=== PATIENT | female | born 1980 | race Caucasian/White ===

== ENCOUNTER 2017-02-08 11:29 | Emergency (ER) | payer BC ==
[2017-02-08 11:43] VITALS: BP 111/53
[2017-02-08] MEDS ORDERED: Sodium Chloride 0.9% 1,000 ML IV ONE ×2 (11:59→13:07)
[2017-02-08] MEDS ORDERED: Sodium Chloride 0.9% 10 ML Syringe FLUSH PRN ×2 (11:59→12:53)
[2017-02-08] MEDS ORDERED: Ketorolac 30 MG/ML SDV IVPUSH ONE (11:59)
[2017-02-08] MEDS ORDERED: HYDROmorphone 0.5 MG/0.5 ML Syringe IVPUSH ONE ×2 (11:59→15:55)
[2017-02-08] MEDS ORDERED: Ondansetron 4 MG/2 ML SDV IVPUSH ONE ×2 (11:59→14:08)
[2017-02-08] MEDS ORDERED: Iopamidol 612 MG/ML 150 ML Bottle IVPUSH ONE (12:53)
[2017-02-08] MEDS ORDERED: Diatrizoate Meglumine/Diatrizoate Sodium 37% 120 ML Bottle PO ONE (12:54)
[2017-02-08] MEDS ORDERED: HYDROmorphone 1 MG/ML Syringe IVPUSH ONE ×2 (13:14→14:29)
--- NOTE | 2017-02-08 14:17 | CT ---
CT abdomen and pelvis Technique: Multiple axial sections were obtained from above the dome of the diaphragm inferiorly through the pubic symphysis. Intravenous and oral contrast was utilized. Delayed images were also obtained through the abdomen and pelvis. Comparison: No previous study. Findings: Visualized lung bases are clear. Ill-defined low-density lesions are seen throughout the left and right lobes of the liver. These do not have Hounsfield unit measurements of cysts and unfortunately are suspicious for possible metastatic disease. Largest lesion measures about 3.0 x 2.4 cm in size. Calcified gallstones are seen within the gallbladder. Spleen appears within normal limits. Adrenal glands show no nodule. Kidneys show symmetric contrast enhancement without hydronephrosis or mass. Pancreas is within normal limits. Aorta shows no aneurysmal dilatation. No retroperitoneal adenopathy or mesenteric abnormalities are seen. No pelvic mass or adenopathy is identified. Appendix is seen and appears within normal limits. No free fluid or inflammatory change is identified. Bone window settings were reviewed which show scattered sclerotic areas within the ribs, spine and within the pelvis and hips likely representing osteoblastic metastasis. Impression: 1. Multiple low-density lesions within the right and left lobes of liver which do not have Hounsfield unit measurements of cysts and are highly suspicious for metastatic disease. 2. Areas of sclerosis within the ribs, spine, pelvis and hips compatible with osteoblastic metastasis. 3. Calcified gallstones are present. 4. No additional abnormality is identified on CT study of the abdomen and pelvis. Diagnostic code #9
--- NOTE | 2017-02-08 14:19 | EDM.PDOC ---
ED HPI GENERAL MEDICAL PROBLEM - General Chief Complaint: Abdominal Pain Stated Complaint: Abdominal pain Time Seen by Provider: 02/08/17 11:45 Source of Information: Reports: Patient, RN Notes Reviewed History Limitations: Reports: No Limitations - History of Present Illness INITIAL COMMENTS - FREE TEXT/NARRATIVE: 36 year old female presents to the ED with abdominal pain, nausea, vomiting, and diarrhea. Symptoms started this morning. She has stage 4 breast cancer with mets to the liver and bones. She had chemotherapy yesterday. She moved back to [place] from [place] about 2 weeks ago and just established care with Dr. Rosales. She does not have a PCP here in [place] yet. She denies fever, chills, sweats, chest pain, or shortness of breath. No urinary symptoms. She had an allergic reaction to her previous chemotherapy medication. This is her second dose of her current chemo treatment. She is concerned that she's having another allergic reaction to this medication. 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 She is scheduled to fly back and see her pain specialist next week. She takes 45mg of Morphine ER BID with 15mg IR every 4 hours as needed for pain. She missed her morning ER morphine due to nausea. She tried taking Phenergan with no relief in nausea at home. Abdominal Pain Score (Numeric/FACES): 9 - Related Data Allergies Allergy/AdvReac Type Severity Reaction Status Date / Time zeloda Allergy Nausea and Uncoded 02/08/17 11:44 Vomiting Home Meds: Home Meds Gabapentin [Gralise] 300 mg PO TID 02/08/17 [History] Meloxicam 15 mg PO DAILY 02/08/17 [History] Morphine Sulfate 15 mg PO Q4H PRN #10 tablet 02/08/17 [Rx] Morphine Sulfate [Morphine Sulfate ER] 45 mg PO BID 02/08/17 [History] Past Medical History Oncologic (Cancer) History: Reports: Breast, Metastatic - Past Surgical History Female Surgical History: Reports: Hysterectomy, Mastectomy Social & Family History - Tobacco Use Smoking Status *Q: Current Every Day Smoker Years of Tobacco use: 13 Packs/Tins Daily: 0.7 - Caffeine Use Caffeine Use: Reports: Coffee - Recreational Drug Use Recreational Drug Use: No ED ROS GENERAL - Review of Systems Review Of Systems: See Below Constitutional: Reports: No Symptoms. Denies: Fever, Chills Respiratory: Reports: No Symptoms. Denies: Shortness of Breath Cardiovascular: Reports: No Symptoms. Denies: Chest Pain GI/Abdominal: Reports: Abdominal Pain, Diarrhea, Decreased Appetite, Nausea, Vomiting : Reports: No Symptoms. Denies: Dysuria, Flank Pain, Frequency ED EXAM, GI/ABD - Physical Exam Exam: See Below Exam Limited By: No Limitations General Appearance: Alert, WD/WN, Anxious, Moderate Distress Respiratory/Chest: No Respiratory Distress, Lungs Clear, Normal Breath Sounds, Chest Non-Tender Cardiovascular: Normal Peripheral Pulses, Regular Rate, Rhythm, No Murmur GI/Abdominal Exam: Normal Bowel Sounds, Soft, No Organomegaly, No Distention, Tender (epigastric region and umbilical region ) Neurological: Alert, Oriented, Normal Cognition Skin Exam: Warm, Dry, Intact Course - Vital Signs Last Recorded V/S: Last Vital Signs Temp 97.4 F 02/08/17 11:41 Pulse 59 L 02/08/17 11:41 Resp 16 02/08/17 11:41 BP 111/53 L 02/08/17 11:41 Pulse Ox 96 02/08/17 11:41 - Orders/Labs/Meds Orders: Active Orders 24 hr Category Date Time Status Peripheral IV Care [RC] . DIRECTED Care 02/08/17 12:00 Active Sodium Chloride 0.9% [Saline Flush] Med 02/08/17 11:59 Active 10 ml FLUSH ASDIRECTED PRN Sodium Chloride 0.9% [Saline Flush] Med 02/08/17 12:53 Active 10 ml FLUSH ONETIME PRN Peripheral IV Insertion Adult [OM.PC] Stat Oth 02/08/17 11:59 Ordered Medication Orders Sodium Chloride (Saline Flush) 10 ml FLUSH ASDIRECTED PRN PRN Reason: Keep Vein Open Last Admin: 02/08/17 12:12 Dose: 10 ml Sodium Chloride (Saline Flush) 10 ml FLUSH ONETIME PRN PRN Reason: IV FLUSH Last Admin: 02/08/17 13:35 Dose: 10 ml Labs: Laboratory Tests 02/08/17 02/08/17 Range/Units 12:00 12:00 WBC 5.43 (3.98-10.04) K/mm3 RBC 4.27 (3.98-5.22) M/mm3 Hgb 12.5 (11.2-15.7) gm/L Hct 37.5 (34.1-44.9) % MCV 87.8 (79.4-94.8) fl MCH 29.3 (25.6-32.2) pg MCHC 33.3 (32.2-35.5) g/dl RDW Std Deviation 48.6 H (36.4-46.3) fL Plt Count 435 H (182-369) K/mm3 MPV 8.8 L (9.4-12.3) fl Neut % (Auto) 81.4 H (34.0-71.1) % Lymph % (Auto) 15.1 L (19.3-51.7) % Starke % (Auto) 2.2 L (4.7-12.5) % Eos % (Auto) 0.2 L (0.7-5.8) Baso % (Auto) 0.4 (0.1-1.2) % Neut # (Auto) 4.42 (1.56-6.13) K/mm3 Lymph # (Auto) 0.82 L (1.18-3.74) K/mm3 Starke # (Auto) 0.12 L (0.24-0.36) K/mm3 Eos # (Auto) 0.01 L (0.04-0.36) K/mm3 Baso # (Auto) 0.02 (0.01-0.08) K/mm3 Sodium 143 (136-145) mEq/L Potassium 3.7 (3.5-5.1) mEq/L Chloride 106 (98-107) mEq/L Carbon Dioxide 24 (21-32) mEq/L Anion Gap 16.7 H (5-15) BUN 14 (7-18) mg/dL Creatinine 0.8 (0.55-1.02) mg/dL Est Cr Clr Drug Dosing 78.37 mL/min Estimated GFR (MDRD) > 60 (>60) mL/min BUN/Creatinine Ratio 17.5 (14-18) Glucose 114 H (74-106) mg/dL Calcium 10.6 H (8.5-10.1) mg/dL Total Bilirubin 0.5 (0.2-1.0) mg/dL AST 32 (15-37) U/L ALT 29 (14-59) U/L Alkaline Phosphatase 95 (46-116) U/L Total Protein 8.8 H (6.4-8.2) g/dl Albumin 4.3 (3.4-5.0) g/dl Globulin 4.5 gm/dL Albumin/Globulin Ratio 1.0 (1-2) Lipase 92 (73-393) U/L Meds: Medications Generic Name Dose Route Start Last Admin Trade Name Erik PRN Reason Stop Dose Admin Sodium Chloride 10 ml 02/08/17 11:59 02/08/17 12:12 Saline Flush FLUSH 10 ml ASDIRECTED PRN Administration Keep Vein Open Sodium Chloride 10 ml 02/08/17 12:53 02/08/17 13:35 Saline Flush FLUSH 10 ml ONETIME PRN Administration IV FLUSH Discontinued Medications Generic Name Dose Route Start Last Admin Trade Name Erik PRN Reason Stop Dose Admin Diatrizoate Meglum/Diatrizoate Sod 120 ml 02/08/17 12:54 02/08/17 13:35 Gastrografin 37% PO 02/08/17 12:55 90 ml ONETIME ONE Administration Hydromorphone HCl 0.5 mg 02/08/17 11:59 02/08/17 12:11 Dilaudid IVPUSH 02/08/17 12:00 0.5 mg ONETIME ONE Administration Hydromorphone HCl 1 mg 02/08/17 13:14 02/08/17 13:18 Dilaudid IVPUSH 02/08/17 13:15 1 mg ONETIME ONE Administration Hydromorphone HCl 1 mg 02/08/17 14:29 02/08/17 14:36 Dilaudid IVPUSH 02/08/17 14:30 1 mg ONETIME ONE Administration Sodium Chloride 1,000 mls @ 999 mls/hr 02/08/17 11:59 02/08/17 12:09 Normal Saline IV 02/08/17 12:59 999 mls/hr ONETIME ONE Administration Sodium Chloride 1,000 mls @ 999 mls/hr 02/08/17 13:07 02/08/17 13:14 Normal Saline IV 02/08/17 14:07 999 mls/hr ONETIME ONE Administration Iopamidol 150 ml 02/08/17 12:53 02/08/17 13:35 Isovue-300 (61%) IVPUSH 02/08/17 12:54 110 ml ONETIME ONE Administration Ketorolac Tromethamine 30 mg 02/08/17 11:59 02/08/17 12:10 Toradol IVPUSH 02/08/17 12:00 30 mg ONETIME ONE Administration Ondansetron HCl 4 mg 02/08/17 11:59 02/08/17 12:09 Zofran IVPUSH 02/08/17 12:00 4 mg ONETIME ONE Administration Ondansetron HCl 4 mg 02/08/17 14:08 02/08/17 14:32 Zofran IVPUSH 02/08/17 14:09 4 mg ONETIME ONE Administration Ondansetron HCl Confirm 02/08/17 14:31 02/08/17 14:34 Zofran Administered 02/08/17 14:32 Not Given Dose 4 mg .ROUTE .[facility]MED ONE - Re-Assessments/Exams Free Text/Narrative Re-Assessment/Exam: CBC is unremarkable. CMP is normal except for anion gap of 16.7. Lipase is WNL. Patient was treated symptomatically with 2 liters of NS, Dilaudid, and Zofran. CT of abdomen/pelvis with oral and IV contrast read by Dr. Epstein, impression: 1. Multiple low-density lesions within the right and left lobes of liver which do not have Hounsfield unit measurements of cysts and are highly suspicious for metastatic disease. 2. Areas of sclerosis within the ribs, spine, pelvis and hips compatible with osteoblastic metastasis. 3. Calcified gallstones are present. 4. No additional abnormality is identified on CT study of the abdomen and pelvis. Results discussed with patient and family. She is aware of the mets. She is very concerned that her pain is related to allergic reaction from her chemo. I did try to contact Dr. Rosales however he was out of the office for the weekend. I spoke to his nurse and they could see her in the clinic on 02/13/17. The patient' s chemotherapy is Taxol every 3 weeks. The patient is agreeable to this. She is concerned that her pain may come back at home. She was instructed to increase her morphine IR to either 1.5 tabs every 4 hours or she can increase to 1 tab every 2-3 hours for a short time. She increased the frequency to every 2 hours during her last reaction. She said this really helped and she only needed to increase the dose for about 12 hours. Patient was encouraged to return to the ER with any worsening problems. She does not have a PCP here in [place]. I recommended that she see Izzy Friend and will send a referral as Izzy works very closely with the Oncology team in [place]. Departure - Departure Time of Disposition: 15:32 Disposition: Home, Self-Care 01 Condition: Good Clinical Impression: Abdominal pain, Nausea & vomiting - Discharge Information Prescriptions: Morphine Sulfate 15 mg PO Q4H PRN #10 tablet PRN Reason: Pain Referrals: Izzy Friend, [employer] [Ordering Only Provider] - Forms: ED Department Discharge Additional Instructions: ED HPI GENERAL MEDICAL PROBLEM - General Chief Complaint: Abdominal Pain Stated Complaint: Abdominal pain Time Seen by Provider: 02/08/17 11:45 Source of Information: Reports: Patient, RN Notes Reviewed History Limitations: Reports: No Limitations - History of Present Illness INITIAL COMMENTS - FREE TEXT/NARRATIVE: 36 year old female presents to the ED with abdominal pain, nausea, vomiting, and diarrhea. Symptoms started this morning. She has stage 4 breast cancer with mets to the liver and bones. She had chemotherapy yesterday. She moved back to [place] from [place] about 2 weeks ago and just established care with Dr. Rosales. She does not have a PCP here in [place] yet. She denies fever, chills, sweats, chest pain, or shortness of breath. No urinary symptoms. Abdominal Pain Score (Numeric/FACES): 9 - Related Data Allergies Allergy/AdvReac Type Severity Reaction Status Date / Time zeloda Allergy Nausea and Uncoded 02/08/17 11:44 Vomiting Home Meds: Home Meds Gabapentin [Gralise] 300 mg PO TID 02/08/17 [History] Meloxicam 15 mg PO DAILY 02/08/17 [History] Morphine Sulfate 15 mg PO Q4H PRN #10 tablet 02/08/17 [Rx] Morphine Sulfate [Morphine Sulfate ER] 45 mg PO BID 02/08/17 [History] Past Medical History Oncologic (Cancer) History: Reports: Breast, Metastatic - Past Surgical History Female Surgical History: Reports: Hysterectomy, Mastectomy Social & Family History - Tobacco Use Smoking Status *Q: Current Every Day Smoker Years of Tobacco use: 13 Packs/Tins Daily: 0.7 - Caffeine Use Caffeine Use: Reports: Coffee - Recreational Drug Use Recreational Drug Use: No ED ROS GENERAL - Review of Systems Review Of Systems: See Below Constitutional: Reports: No Symptoms. Denies: Fever, Chills Respiratory: Reports: No Symptoms. Denies: Shortness of Breath Cardiovascular: Reports: No Symptoms. Denies: Chest Pain GI/Abdominal: Reports: Abdominal Pain, Diarrhea, Decreased Appetite, Nausea, Vomiting : Reports: No Symptoms. Denies: Dysuria, Flank Pain, Frequency ED EXAM, GI/ABD - Physical Exam Exam: See Below Exam Limited By: No Limitations General Appearance: Alert, WD/WN, Anxious, Moderate Distress Respiratory/Chest: No Respiratory Distress, Lungs Clear, Normal Breath Sounds, Chest Non-Tender Cardiovascular: Normal Peripheral Pulses, Regular Rate, Rhythm, No Murmur GI/Abdominal Exam: Normal Bowel Sounds, Soft, No Organomegaly, No Distention, Tender (epigastric region and umbilical region ) Neurological: Alert, Oriented, Normal Cognition Skin Exam: Warm, Dry, Intact Course - Vital Signs Last Recorded V/S: Last Vital Signs Temp 97.4 F 02/08/17 11:41 Pulse 59 L 02/08/17 11:41 Resp 16 02/08/17 11:41 BP 111/53 L 02/08/17 11:41 Pulse Ox 96 02/08/17 11:41 - Orders/Labs/Meds Orders: Active Orders 24 hr Category Date Time Status Peripheral IV Care [RC] . DIRECTED Care 02/08/17 12:00 Active Sodium Chloride 0.9% [Saline Flush] Med 02/08/17 11:59 Active 10 ml FLUSH ASDIRECTED PRN Sodium Chloride 0.9% [Saline Flush] Med 02/08/17 12:53 Active 10 ml FLUSH ONETIME PRN Peripheral IV Insertion Adult [OM.PC] Stat Oth 02/08/17 11:59 Ordered Medication Orders Sodium Chloride (Saline Flush) 10 ml FLUSH ASDIRECTED PRN PRN Reason: Keep Vein Open Last Admin: 02/08/17 12:12 Dose: 10 ml Sodium Chloride (Saline Flush) 10 ml FLUSH ONETIME PRN PRN Reason: IV FLUSH Last Admin: 02/08/17 13:35 Dose: 10 ml Labs: Laboratory Tests 02/08/17 02/08/17 Range/Units 12:00 12:00 WBC 5.43 (3.98-10.04) K/mm3 RBC 4.27 (3.98-5.22) M/mm3 Hgb 12.5 (11.2-15.7) gm/L Hct 37.5 (34.1-44.9) % MCV 87.8 (79.4-94.8) fl MCH 29.3 (25.6-32.2) pg MCHC 33.3 (32.2-35.5) g/dl RDW Std Deviation 48.6 H (36.4-46.3) fL Plt Count 435 H (182-369) K/mm3 MPV 8.8 L (9.4-12.3) fl Neut % (Auto) 81.4 H (34.0-71.1) % Lymph % (Auto) 15.1 L (19.3-51.7) % Starke % (Auto) 2.2 L (4.7-12.5) % Eos % (Auto) 0.2 L (0.7-5.8) Baso % (Auto) 0.4 (0.1-1.2) % Neut # (Auto) 4.42 (1.56-6.13) K/mm3 Lymph # (Auto) 0.82 L (1.18-3.74) K/mm3 Starke # (Auto) 0.12 L (0.24-0.36) K/mm3 Eos # (Auto) 0.01 L (0.04-0.36) K/mm3 Baso # (Auto) 0.02 (0.01-0.08) K/mm3 Sodium 143 (136-145) mEq/L Potassium 3.7 (3.5-5.1) mEq/L Chloride 106 (98-107) mEq/L Carbon Dioxide 24 (21-32) mEq/L Anion Gap 16.7 H (5-15) BUN 14 (7-18) mg/dL Creatinine 0.8 (0.55-1.02) mg/dL Est Cr Clr Drug Dosing 78.37 mL/min Estimated GFR (MDRD) > 60 (>60) mL/min BUN/Creatinine Ratio 17.5 (14-18) Glucose 114 H (74-106) mg/dL Calcium 10.6 H (8.5-10.1) mg/dL Total Bilirubin 0.5 (0.2-1.0) mg/dL AST 32 (15-37) U/L ALT 29 (14-59) U/L Alkaline Phosphatase 95 (46-116) U/L Total Protein 8.8 H (6.4-8.2) g/dl Albumin 4.3 (3.4-5.0) g/dl Globulin 4.5 gm/dL Albumin/Globulin Ratio 1.0 (1-2) Lipase 92 (73-393) U/L Meds: Medications Generic Name Dose Route Start Last Admin Trade Name Erik PRN Reason Stop Dose Admin Sodium Chloride 10 ml 02/08/17 11:59 02/08/17 12:12 Saline Flush FLUSH 10 ml ASDIRECTED PRN Administration Keep Vein Open Sodium Chloride 10 ml 02/08/17 12:53 02/08/17 13:35 Saline Flush FLUSH 10 ml ONETIME PRN Administration IV FLUSH Discontinued Medications Generic Name Dose Route Start Last Admin Trade Name Erik PRN Reason Stop Dose Admin Diatrizoate Meglum/Diatrizoate Sod 120 ml 02/08/17 12:54 02/08/17 13:35 Gastrografin 37% PO 02/08/17 12:55 90 ml ONETIME ONE Administration Hydromorphone HCl 0.5 mg 02/08/17 11:59 02/08/17 12:11 Dilaudid IVPUSH 02/08/17 12:00 0.5 mg ONETIME ONE Administration Hydromorphone HCl 1 mg 02/08/17 13:14 02/08/17 13:18 Dilaudid IVPUSH 02/08/17 13:15 1 mg ONETIME ONE Administration Hydromorphone HCl 1 mg 02/08/17 14:29 02/08/17 14:36 Dilaudid IVPUSH 02/08/17 14:30 1 mg ONETIME ONE Administration Sodium Chloride 1,000 mls @ 999 mls/hr 02/08/17 11:59 02/08/17 12:09 Normal Saline IV 02/08/17 12:59 999 mls/hr ONETIME ONE Administration Sodium Chloride 1,000 mls @ 999 mls/hr 02/08/17 13:07 02/08/17 13:14 Normal Saline IV 02/08/17 14:07 999 mls/hr ONETIME ONE Administration Iopamidol 150 ml 02/08/17 12:53 02/08/17 13:35 Isovue-300 (61%) IVPUSH 02/08/17 12:54 110 ml ONETIME ONE Administration Ketorolac Tromethamine 30 mg 02/08/17 11:59 02/08/17 12:10 Toradol IVPUSH 02/08/17 12:00 30 mg ONETIME ONE Administration Ondansetron HCl 4 mg 02/08/17 11:59 02/08/17 12:09 Zofran IVPUSH 02/08/17 12:00 4 mg ONETIME ONE Administration Ondansetron HCl 4 mg 02/08/17 14:08 02/08/17 14:32 Zofran IVPUSH 02/08/17 14:09 4 mg ONETIME ONE Administration Ondansetron HCl Confirm 02/08/17 14:31 02/08/17 14:34 Zofran Administered 02/08/17 14:32 Not Given Dose 4 mg .ROUTE .[facility]-MED ONE Departure - Departure Time of Disposition: 15:32 Disposition: Home, Self-Care 01 Condition: Good Clinical Impression: Abdominal pain, Nausea & vomiting - Discharge Information Prescriptions: Morphine Sulfate 15 mg PO Q4H PRN #10 tablet PRN Reason: Pain Referrals: PCP,None [Primary Care Provider] - Forms: ED Department Discharge Additional Instructions: Follow-up with Dr. Rosales on 02/13/17 at 3:30 PM [facility]AL time, 2:30 [place]. Phenergan 1/2 to 1 ml topically every 4-6 hours as needed for nausea Increase your morphine 15mg immediate release tablets to every 2-3 hours OR you can increase to 1.5 tablets every 4-6 hours. Follow-up with your pain specialist as scheduled Return to ER with any further problems. - My Orders Last 24 Hours: My Active Orders 02/08/17 11:59 Sodium Chloride 0.9% [Saline Flush] 10 ml FLUSH ASDIRECTED PRN Peripheral IV Insertion Adult [OM.PC] Stat 02/08/17 12:00 Peripheral IV Care [RC] . DIRECTED 02/08/17 12:53 Sodium Chloride 0.9% [Saline Flush] 10 ml FLUSH ONETIME PRN - Assessment/Plan Last 24 Hours: My Active Orders 02/08/17 11:59 Sodium Chloride 0.9% [Saline Flush] 10 ml FLUSH ASDIRECTED PRN Peripheral IV Insertion Adult [OM.PC] Stat 02/08/17 12:00 Peripheral IV Care [RC] . DIRECTED 02/08/17 12:53 Sodium Chloride 0.9% [Saline Flush] 10 ml FLUSH ONETIME PRN Follow-up with Dr. Rosales on 02/13/17 at 3:30 PM [facility]TRAL time, 2:30 [place]. Phenergan 1/2 to 1 ml topically every 4-6 hours as needed for nausea Increase your morphine 15mg immediate release tablets to every 2-3 hours OR you can increase to 1.5 tablets every 4-6 hours. Follow-up with your pain specialist as scheduled Return to ER with any further problems. - My Orders Last 24 Hours: My Active Orders 02/08/17 11:59 Sodium Chloride 0.9% [Saline Flush] 10 ml FLUSH ASDIRECTED PRN Peripheral IV Insertion Adult [OM.PC] Stat 02/08/17 12:00 Peripheral IV Care [RC] . DIRECTED 02/08/17 12:53 Sodium Chloride 0.9% [Saline Flush] 10 ml FLUSH ONETIME PRN - Assessment/Plan Last 24 Hours: My Active Orders 02/08/17 11:59 Sodium Chloride 0.9% [Saline Flush] 10 ml FLUSH ASDIRECTED PRN Peripheral IV Insertion Adult [OM.PC] Stat 02/08/17 12:00 Peripheral IV Care [RC] . DIRECTED 02/08/17 12:53 Sodium Chloride 0.9% [Saline Flush] 10 ml FLUSH ONETIME PRN
[2017-02-08] MEDS ORDERED: Ondansetron 4 MG/2 ML SDV ONE (14:31)
== END 2017-02-08 16:05 | disposition home or self-care (01) ==
LOC: JD.ED 11:29
DX: R10.9 Unspecified abdominal pain (principal); R11.2 Nausea with vomiting, unspecified; F17.210 Nicotine dependence, cigarettes, uncomplicated; C50.919 Malignant neoplasm of unspecified site of unspecified female breast; C78.7 Secondary malignant neoplasm of liver and intrahepatic bile duct; C79.51 Secondary malignant neoplasm of bone; Z90.710 Acquired absence of both cervix and uterus; Z79.899 Other long term (current) drug therapy
CPT/HCPCS: 36415; 74177; 80053; 83690; 85025; 96361; 96374; 96375; 96376; 99284; J1170; J1885; J2405; J7040; J7050; Q9963; Q9967

== ENCOUNTER 2017-06-20 07:52 | Emergency (ER) | payer BC, MEDICAID ==
[2017-06-20 08:04] VITALS: BP 106/64
[2017-06-20] MEDS ORDERED: Ondansetron 4 MG/2 ML SDV IVPUSH ONE (08:26)
[2017-06-20] MEDS ORDERED: Sodium Chloride 0.9% 10 ML Syringe FLUSH PRN ×2 (08:26→09:37)
[2017-06-20] MEDS ORDERED: Sodium Chloride 0.9% 1,000 ML IV STA (08:26)
[2017-06-20] MEDS ORDERED: HYDROmorphone 1 MG/ML Syringe IVPUSH ONE (08:28)
--- NOTE | 2017-06-20 09:15 | EDM.PDOC ---
ED HPI GENERAL MEDICAL PROBLEM - General Chief Complaint: Fever Stated Complaint: FEVER Time Seen by Provider: 06/20/17 08:19 Source of Information: Reports: Patient History Limitations: Reports: No Limitations - History of Present Illness INITIAL COMMENTS - FREE TEXT/NARRATIVE: The patient presents with a fever. She had a temp of 103 last night. She has a slight cough, congestion and runny nose. She has body aches. She has breast cancer and she is chemotherapy. She had chemo last Saturday and last night. She has no chest pain or shortness of breath. She has some left lower abdominal pain with nausea. She has no dysuria. She has no hematuria. She has not been around anyone who is sick. Onset: Gradual Duration: Day(s): (Last night) Location: Reports: Abdomen, Generalized Quality: Reports: Ache Severity: Moderate Improves with: Reports: None Worsens with: Reports: None Associated Symptoms: Reports: Cough, Fever/Chills, Nausea/Vomiting. Denies: Headaches, Shortness of Breath Abdominal Pain Score (Numeric/FACES): 8 - Related Data Allergies Allergy/AdvReac Type Severity Reaction Status Date / Time zeloda Allergy Nausea and Uncoded 06/20/17 08:04 Vomiting Home Meds: Home Meds Gabapentin [Gralise] 300 mg PO TID 02/08/17 [History] Azithromycin [IJD: Azithromycin] 250 mg PO DAILY #6 tab 06/20/17 [Rx] Cholecalciferol (Vitamin D3) [Vitamin D3] 1,000 units PO DAILY 06/20/17 [History ] Diphenhyd/Lidocaine/Nystatin [Magic Mouthwash] 10 ml PO QID PRN 06/20/17 [ History] Kenia 80 mg PO TID 06/20/17 [History] HYDROmorphone [Dilaudid] 4 mg PO Q4H PRN 06/20/17 [History] Loratadine [Claritin] 10 mg PO DAILY PRN 06/20/17 [History] Melatonin/Pyridoxine HCl (B6) [Melatonin 10 mg Tablet] 20 mg PO BEDTIME [History] Methocarbamol 750 mg PO DAILY PRN 06/20/17 [History] Morphine [MS Contin] 15 mg PO BID 06/20/17 [History] Morphine [MS Contin] 30 mg PO Q8H 06/20/17 [History] [place]-3/DHA/Epa/Fish Oil [[place] 3 500 Softgel] 2 tab PO DAILY 06/20/17 [History] Ondansetron [Ondansetron ODT] 8 mg PO Q8H PRN 06/20/17 [History] Prochlorperazine [Compazine] 10 mg PO QID PRN 06/20/17 [History] Promethazine [Phenergan] 25 mg TOP Q4H PRN 06/20/17 [History] Vitamin B Complex [B Complex] 1 each PO DAILY 06/20/17 [History] valACYclovir [Valtrex] 1,000 mg PO BID 06/20/17 [History] Past Medical History Oncologic (Cancer) History: Reports: Breast, Metastatic - Past Surgical History Female Surgical History: Reports: Hysterectomy, Mastectomy, Salpingo- Oophorectomy Social & Family History - Tobacco Use Smoking Status *Q: Current Every Day Smoker Years of Tobacco use: 15 Packs/Tins Daily: 0.5 - Caffeine Use Caffeine Use: Reports: Coffee, Soda, Tea - Recreational Drug Use Recreational Drug Use: No ED ROS GENERAL - Review of Systems Review Of Systems: See Below Constitutional: Reports: Fever, Chills, Malaise, Weakness, Fatigue HEENT: Reports: Other (Congestion and runny nose) Respiratory: Reports: Cough. Denies: Shortness of Breath Cardiovascular: Reports: No Symptoms Endocrine: Reports: No Symptoms GI/Abdominal: Reports: Abdominal Pain (LLQ), Nausea. Denies: Diarrhea, Vomiting : Reports: No Symptoms Musculoskeletal: Reports: Muscle Pain (Generalized) Skin: Reports: No Symptoms Neurological: Reports: No Symptoms ED EXAM, SEPSIS - Physical Exam Exam: See Below Exam Limited By: No Limitations General Appearance: Alert, No Apparent Distress Ears: Normal External Exam Nose: Normal Inspection Head: Atraumatic, Normocephalic Neck: Normal Inspection Respiratory/Chest: No Respiratory Distress, Lungs Clear, Normal Breath Sounds Cardiovascular: Regular Rate, Rhythm, No Edema, No Murmur GI/Abdominal Exam: Soft, No Organomegaly, No Mass, Tender (Moderate pain upon palpation to the LLQ) Extremities: Normal Inspection Neurological: Alert, Oriented, No Motor/Sensory Deficits Course - Vital Signs Last Recorded V/S: Last Vital Signs Temp 99.5 F 06/20/17 10:50 Pulse 130 H 06/20/17 08:00 Resp 16 06/20/17 08:00 BP 106/64 06/20/17 08:00 Pulse Ox 97 06/20/17 08:00 - Orders/Labs/Meds Orders: Active Orders 24 hr Category Date Time Status Implanted Port Access [RC] ONETIME Care 06/20/17 08:29 Inactive Peripheral IV Care [RC] . DIRECTED Care 06/20/17 08:26 Active Chest 1V Frontal [CR] Stat Exams 06/20/17 08:26 Taken CULTURE BLOOD [BC] Stat Lab 06/20/17 08:45 Received CULTURE BLOOD [BC] Stat Lab 06/20/17 08:55 Received Sodium Chloride 0.9% [Saline Flush] Med 06/20/17 08:26 Active 10 ml FLUSH ASDIRECTED PRN Sodium Chloride 0.9% [Saline Flush] Med 06/20/17 09:37 Active 10 ml FLUSH ONETIME PRN Blood Culture x2 Reflex Set [OM.PC] Stat Oth 06/20/17 08:28 Ordered ED Antiemetic Medication Reflex [OM.PC] Stat Oth 06/20/17 08:26 Ordered Peripheral IV Insertion Adult [OM.PC] Stat Oth 06/20/17 08:26 Ordered Medication Orders Sodium Chloride (Saline Flush) 10 ml FLUSH ASDIRECTED PRN PRN Reason: Keep Vein Open Last Admin: 06/20/17 09:03 Dose: 10 ml Sodium Chloride (Saline Flush) 10 ml FLUSH ONETIME PRN PRN Reason: IV FLUSH Last Admin: 06/20/17 09:54 Dose: 10 ml Labs: Laboratory Tests 06/20/17 06/20/17 06/20/17 Range/Units 08:45 08:45 08:45 WBC 5.54 (3.98-10.04) K/mm3 RBC 3.42 L (3.98-5.22) M/mm3 Hgb 9.2 L (11.2-15.7) gm/L Hct 28.8 L (34.1-44.9) % MCV 84.2 (79.4-94.8) fl MCH 26.9 (25.6-32.2) pg MCHC 31.9 L (32.2-35.5) g/dl RDW Std Deviation 63.9 H (36.4-46.3) fL Plt Count 273 (182-369) K/mm3 MPV 10.3 (9.4-12.3) fl Neut % (Auto) 81.1 H (34.0-71.1) % Lymph % (Auto) 15.0 L (19.3-51.7) % [place] % (Auto) 2.3 L (4.7-12.5) % Eos % (Auto) 0 L (0.7-5.8) Baso % (Auto) 0.5 (0.1-1.2) % Neut # (Auto) 4.49 (1.56-6.13) K/mm3 Lymph # (Auto) 0.83 L (1.18-3.74) K/mm3 [place] # (Auto) 0.13 L (0.24-0.36) K/mm3 Eos # (Auto) 0.00 L (0.04-0.36) K/mm3 Baso # (Auto) 0.03 (0.01-0.08) K/mm3 Sodium 139 (136-145) mEq/L Potassium 3.4 L (3.5-5.1) mEq/L Chloride 103 (98-107) mEq/L Carbon Dioxide 25 (21-32) mEq/L Anion Gap 14.4 (5-15) BUN 9 (7-18) mg/dL Creatinine 0.7 (0.55-1.02) mg/dL Est Cr Clr Drug Dosing 89.56 mL/min Estimated GFR (MDRD) > 60 (>60) mL/min BUN/Creatinine Ratio 12.9 L (14-18) Glucose 116 H (74-106) mg/dL Calcium 9.0 (8.5-10.1) mg/dL Total Bilirubin 1.4 H (0.2-1.0) mg/dL AST 32 (15-37) U/L ALT 28 (14-59) U/L Alkaline Phosphatase 84 (46-116) U/L Total Protein 6.9 (6.4-8.2) g/dl Albumin 3.4 (3.4-5.0) g/dl Globulin 3.5 gm/dL Albumin/Globulin Ratio 1.0 (1-2) Amylase 27 (25-115) U/L HCG, Qual Negative (NEGATIVE) Urine Color (Yellow) Urine Appearance (Clear) Urine pH (5.0-8.0) Ur Specific [place] (1.005-1.030) Urine Protein (Negative) Urine Glucose (UA) (Negative) Urine Ketones (Negative) Urine Occult Blood (Negative) Urine Nitrite (Negative) Urine Bilirubin (Negative) Urine Urobilinogen (0.2-1.0) Ur Leukocyte Esterase (Negative) Urine RBC (0-5) /hpf Urine WBC (0-5) /hpf Ur Epithelial Cells (0-5) /hpf Urine Bacteria (FEW) /hpf Urine Mucus (FEW) /hpf 06/20/17 Range/Units 09:00 WBC (3.98-10.04) K/mm3 RBC (3.98-5.22) M/mm3 Hgb (11.2-15.7) gm/L Hct (34.1-44.9) % MCV (79.4-94.8) fl MCH (25.6-32.2) pg MCHC (32.2-35.5) g/dl RDW Std Deviation (36.4-46.3) fL Plt Count (182-369) K/mm3 MPV (9.4-12.3) fl Neut % (Auto) (34.0-71.1) % Lymph % (Auto) (19.3-51.7) % [place] % (Auto) (4.7-12.5) % Eos % (Auto) (0.7-5.8) Baso % (Auto) (0.1-1.2) % Neut # (Auto) (1.56-6.13) K/mm3 Lymph # (Auto) (1.18-3.74) K/mm3 [place] # (Auto) (0.24-0.36) K/mm3 Eos # (Auto) (0.04-0.36) K/mm3 Baso # (Auto) (0.01-0.08) K/mm3 Sodium (136-145) mEq/L Potassium (3.5-5.1) mEq/L Chloride (98-107) mEq/L Carbon Dioxide (21-32) mEq/L Anion Gap (5-15) BUN (7-18) mg/dL Creatinine (0.55-1.02) mg/dL Est Cr Clr Drug Dosing mL/min Estimated GFR (MDRD) (>60) mL/min BUN/Creatinine Ratio (14-18) Glucose (74-106) mg/dL Calcium (8.5-10.1) mg/dL Total Bilirubin (0.2-1.0) mg/dL AST (15-37) U/L ALT (14-59) U/L Alkaline Phosphatase (46-116) U/L Total Protein (6.4-8.2) g/dl Albumin (3.4-5.0) g/dl Globulin gm/dL Albumin/Globulin Ratio (1-2) Amylase (25-115) U/L HCG, Qual (NEGATIVE) Urine Color Yellow (Yellow) Urine Appearance Clear (Clear) Urine pH 6.0 (5.0-8.0) Ur Specific [place] 1.015 (1.005-1.030) Urine Protein Negative (Negative) Urine Glucose (UA) Negative (Negative) Urine Ketones Negative (Negative) Urine Occult Blood Negative (Negative) Urine Nitrite Negative (Negative) Urine Bilirubin Negative (Negative) Urine Urobilinogen 1.0 (0.2-1.0) Ur Leukocyte Esterase Negative (Negative) Urine RBC Not seen (0-5) /hpf Urine WBC 0-5 (0-5) /hpf Ur Epithelial Cells 0-5 (0-5) /hpf Urine Bacteria Few (FEW) /hpf Urine Mucus Not seen (FEW) /hpf Meds: Medications Generic Name Dose Route Start Last Admin Trade Name Erik PRN Reason Stop Dose Admin Sodium Chloride 10 ml 06/20/17 08:26 06/20/17 09:03 Saline Flush FLUSH 10 ml ASDIRECTED PRN Administration Keep Vein Open Sodium Chloride 10 ml 06/20/17 09:37 06/20/17 09:54 Saline Flush FLUSH 10 ml ONETIME PRN Administration IV FLUSH Discontinued Medications Generic Name Dose Route Start Last Admin Trade Name Freq PRN Reason Stop Dose Admin Diatrizoate Meglum/Diatrizoate Sod 90 ml 06/20/17 09:55 06/20/17 09:55 Gastrografin 37% PO 06/20/17 09:56 90 ml ONETIME ONE Administration Hydromorphone HCl 1 mg 06/20/17 08:28 06/20/17 09:03 Dilaudid IVPUSH 06/20/17 08:29 1 mg ONETIME ONE Administration Sodium Chloride 1,000 mls @ 1,000 mls/hr 06/20/17 08:26 06/20/17 09:01 Normal Saline IV 06/20/17 09:25 1,000 mls/hr .BOLUS STA Administration Iopamidol 100 ml 06/20/17 09:37 06/20/17 09:54 Isovue-300 (61%) IVPUSH 06/20/17 09:38 100 ml ONETIME ONE Administration Ondansetron HCl 4 mg 06/20/17 08:26 06/20/17 09:02 Zofran IVPUSH 06/20/17 08:27 4 mg ONETIME ONE Administration - Re-Assessments/Exams Free Text/Narrative Re-Assessment/Exam: 06/20/17 09:13 I ordered an IV NS 1L bolus, zofran 4mg IV, dilaudid 1mg IV, labs, UA, CXR, CT of her abdomen and pelvis and blood cultures. 06/20/17 10:56 Her WBC was normal at 5.54. Her Hgb was a little low at 9.2. Her platelets were normal at 273. Her K was a little low at 3.4. Her glucose was 116. Her HCG is negative. Her UA shows no UTI. Her CXR shows no infiltrate. Her CT shows multiple ill-defined metastatic lesions within the liver. These have not worsened from prior study and are either stable or slightly improved. 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 Mild increased stool is noted throughout the colon. Calcified gallstones within the gallbladder. Nothing acute is appreciated on CT study of the abdomen and pelvis. She is feeling good now. I called Dr Rosales and he recommended a z-maria ines just because this could be a bronchitis and she may go neutropenic and get very sick. Departure - Departure Time of Disposition: 23:10 Disposition: Home, Self-Care 01 Condition: Good Clinical Impression: Bronchitis Abdominal pain Qualifiers: Abdominal location: left lower quadrant Qualified Code(s): R10.32 - Left lower quadrant pain Fever Qualifiers: Fever type: unspecified Qualified Code(s): R50.9 - Fever, unspecified - Discharge Information Prescriptions: Azithromycin [IJD: Azithromycin] 250 mg PO DAILY #6 tab Referrals: Izzy Friend, [employer] [employer] [Primary Care Provider] - Forms: ED Department Discharge Additional Instructions: Take your medication as prescribed. Take zithromax 2 pills on day 1 and 1 pill on day 2 through 5. Please return if you are worse. - My Orders Last 24 Hours: My Active Orders 06/20/17 08:26 Peripheral IV Care [RC] . DIRECTED Chest 1V Frontal [CR] Stat Sodium Chloride 0.9% [Saline Flush] 10 ml FLUSH ASDIRECTED PRN ED Antiemetic Medication Reflex [OM.PC] Stat Peripheral IV Insertion Adult [OM.PC] Stat 06/20/17 08:28 Blood Culture x2 Reflex Set [OM.PC] Stat 06/20/17 08:29 Implanted Port Access [RC] ONETIME 06/20/17 08:45 CULTURE BLOOD [BC] Stat 06/20/17 08:55 CULTURE BLOOD [BC] Stat 06/20/17 09:37 Sodium Chloride 0.9% [Saline Flush] 10 ml FLUSH ONETIME PRN - Assessment/Plan Last 24 Hours: My Active Orders 06/20/17 08:26 Peripheral IV Care [RC] . DIRECTED Chest 1V Frontal [CR] Stat Sodium Chloride 0.9% [Saline Flush] 10 ml FLUSH ASDIRECTED PRN ED Antiemetic Medication Reflex [OM.PC] Stat Peripheral IV Insertion Adult [OM.PC] Stat 06/20/17 08:28 Blood Culture x2 Reflex Set [OM.PC] Stat 06/20/17 08:29 Implanted Port Access [RC] ONETIME 06/20/17 08:45 CULTURE BLOOD [BC] Stat 06/20/17 08:55 CULTURE BLOOD [BC] Stat 06/20/17 09:37 Sodium Chloride 0.9% [Saline Flush] 10 ml FLUSH ONETIME PRN
[2017-06-20] MEDS ORDERED: Iopamidol 612 MG/ML 100 ML Bottle IVPUSH ONE (09:37)
[2017-06-20] MEDS ORDERED: Diatrizoate Meglumine/Diatrizoate Sodium 37% 120 ML Bottle PO ONE (09:55)
--- NOTE | 2017-06-20 10:20 | CT ---
CT abdomen and pelvis Technique: Multiple axial sections were obtained from above the dome of the diaphragm inferiorly through the pubic symphysis. Intravenous and oral contrast has been given. Delayed images were obtained through the bladder. Comparison: Prior CT abdomen and pelvis exam of 02/08/17. Findings: Multiple ill-defined low density lesions are seen throughout the right and left lobes of the liver. These do not appear to have worsened from prior exam and are either stable or possibly shows minimal improvement. Visualized lung bases shows nothing acute. Spleen appears within normal limits. Calcified gallstones are seen within the gallbladder. Adrenal glands show no nodule. Kidneys show symmetric contrast enhancement without hydronephrosis or mass. Pancreas is within normal limits. Aorta shows no aneurysmal dilatation. No retroperitoneal adenopathy is seen. No pelvic mass or adenopathy is seen. Delayed images shows contrast within the distal ureters and within the bladder. Mild increased stool is noted throughout the colon. Bone window settings were reviewed which shows diffuse osteoblastic metastasis throughout the spine and pelvis. Impression: 1. Multiple ill-defined metastatic lesions within the liver. As mentioned above, these have not worsened from prior study and are either stable or slightly improved. 2. 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 3. Mild increased stool is noted throughout the colon. Calcified gallstones within the gallbladder. 4. Nothing acute is appreciated on CT study of the abdomen and pelvis. Diagnostic code #9
--- NOTE | 2017-06-20 12:46 | CR ---
Chest: Portable view of the chest was obtained. Comparison: No previous study. Heart size and mediastinum are normal. Right-sided infusion port is seen. Lungs are clear. Ill defined sclerotic areas are suggested within the osseous structures. Impression: 1. Ill-defined sclerotic areas within the osseous structures likely representing osteoblastic metastasis. 2. Nothing acute is otherwise seen on frontal chest x-ray. Diagnostic code #3
== END 2017-06-20 11:22 | disposition home or self-care (01) ==
LOC: JD.ED 07:52
DX: J40 Bronchitis, not specified as acute or chronic (principal); K80.80 Other cholelithiasis without obstruction; C50.919 Malignant neoplasm of unspecified site of unspecified female breast; C78.7 Secondary malignant neoplasm of liver and intrahepatic bile duct; C79.51 Secondary malignant neoplasm of bone; F17.210 Nicotine dependence, cigarettes, uncomplicated; Z88.8 Allergy status to other drugs, medicaments and biological substances; Z79.899 Other long term (current) drug therapy
CPT/HCPCS: 36415; 71045; 74177; 80053; 81001; 82150; 84703; 85025; 87040; 87804; 96361; 96374; 96375; 99285; J1170; J2405; J7040; J7050; Q9963; Q9967; 99284

== ENCOUNTER 2017-09-26 18:29 | Emergency (ER) | payer BC, MEDICAID ==
[2017-09-26] MEDS ORDERED: HYDROmorphone 0.5 MG/0.5 ML SYRINGE IVPUSH ONE ×3 (18:40→21:58)
[2017-09-26] MEDS ORDERED: Sodium Chloride 0.9% 10 ML Syringe FLUSH PRN (18:40)
[2017-09-26 18:47] VITALS: BP 118/74
--- NOTE | 2017-09-26 19:10 | EDM.PDOC ---
ED HPI GENERAL MEDICAL PROBLEM - General Chief Complaint: Abdominal Pain Stated Complaint: HAS CA/ABDOMINAL/RIGHT SIDE PAIN Time Seen by Provider: 09/26/17 18:43 Source of Information: Reports: Patient History Limitations: Reports: No Limitations - History of Present Illness INITIAL COMMENTS - FREE TEXT/NARRATIVE: Patient is a 36-year-old female with metastatic breast cancer that spread to her liver and bones.Patient states she was previously on chemo but has stopped as of recent. Patient states the cancer is not responding to chemotherapy thus is why they stop. CT of the abdomen and pelvis performed a few months ago revealed enlarging tumor to the right liver. She is on pain therapy including fentanyl patch 75 g and also oral Dilaudid. Patient is on palliative care. States as of recent has developed increasing pain to the abdomen secondary to distention. She states the pain is quite severe constant worse with laying flat. She states she is short of breath and cannot take a deep breath. States it suffocating at times. States as of recent stool pattern has changed as well as color. States stool is floating and also florina color. There is no blood present. She denies any pain with urination or urinary retention. Of note ammonia levels were 60 as of recent. She sees Dr. Rosales oncologist at [facility]. She denies any nausea/vomiting, fever, hemoptysis, diarrhea, dysuria, and no history kidney stones. States she does have a mild cough nonproductive. She has noticed increased jaundice to her eyes and skin with no itching present. Current medications: Phenergan, Compazine, Zofran, morphine, methocarbamol, Claritin, Dilaudid, gabapentin, Magic mouthwash, arythromycin. Surgical history: Bilateral mastectomy and also hysterectomy. Treatments AGRICULTURAL ECONOMICS TEACHER: Reports: Other (see below) Other Treatments AGRICULTURAL ECONOMICS TEACHER: fentanyl, dilaudid and methocarbamol Abdominal Pain Score (Numeric/FACES): 10 - Related Data Allergies Allergy/AdvReac Type Severity Reaction Status Date / Time capecitabine AdvReac Nausea and Verified 09/26/17 18:37 Vomiting Home Meds: Home Meds Gabapentin [Gralise] 300 mg PO TID 02/08/17 [History] Cholecalciferol (Vitamin D3) [Vitamin D3] 1,000 units PO DAILY 06/20/17 [History ] Kenia 80 mg PO TID 06/20/17 [History] HYDROmorphone [Dilaudid] 4 mg PO Q4H PRN 06/20/17 [History] Loratadine [Claritin] 10 mg PO DAILY PRN 06/20/17 [History] Melatonin/Pyridoxine HCl (B6) [Melatonin 10 mg Tablet] 20 mg PO BEDTIME [History] Methocarbamol 750 mg PO DAILY PRN 06/20/17 [History] Rolla-3/DHA/Epa/Fish Oil [Rolla 3 500 Softgel] 2 tab PO DAILY 06/20/17 [History] Vitamin B Complex [B Complex] 1 each PO DAILY 06/20/17 [History] valACYclovir [Valtrex] 1,000 mg PO BID 06/20/17 [History] Lactulose [Cephulac] 10 ml PO TID 09/26/17 [History] fentaNYL [Fentanyl] 75 each TD ASDIRECTED 09/26/17 [History] Past Medical History Oncologic (Cancer) History: Reports: Breast, Metastatic - Past Surgical History Female Surgical History: Reports: Hysterectomy, Mastectomy, Salpingo- Oophorectomy Social & Family History - Tobacco Use Smoking Status *Q: Current Every Day Smoker Years of Tobacco use: 15 Packs/Tins Daily: 0.5 - Caffeine Use Caffeine Use: Reports: Coffee, Soda, Tea - Recreational Drug Use Recreational Drug Use: No ED ROS GENERAL - Review of Systems Review Of Systems: ROS reveals no pertinent complaints other than HPI. ED EXAM, GI/ABD - Physical Exam Exam: See Below Exam Limited By: No Limitations General Appearance: Alert, WD/WN, Moderate Distress Eyes: Bilateral: Normal Appearance (sclera is icterus) Ears: Other Nose: Normal Inspection Throat/Mouth: Normal Voice, No Airway Compromise, Other (dry oral mucosa) Neck: Normal Inspection, Supple Respiratory/Chest: No Respiratory Distress, Lungs Clear, No Accessory Muscle Use , Chest Non-Tender, Other (poor inspiratory effort ) Cardiovascular: Normal Peripheral Pulses, Tachycardia GI/Abdominal Exam: Distended, Tender (throughout with point of maximal tenderness RUQ. ), Abnormal Bowel Sounds (hyper) Back Exam: No: CVA Tenderness (L), CVA Tenderness (R) Extremities: Other (Left arm swollen from lymphedema) Neurological: Alert, Oriented, CN II-XII Intact, Normal Cognition, No Motor/ Sensory Deficits Psychiatric: Normal Affect, Normal Mood Skin Exam: Warm, Dry, Intact, No Rash, Jaundice Course - Vital Signs Last Recorded V/S: Last Vital Signs Temp 97.5 F 09/26/17 18:37 Pulse 124 H 09/26/17 18:37 Resp 24 H 09/26/17 18:37 BP 118/74 09/26/17 18:37 Pulse Ox 91 L 09/26/17 18:37 - Orders/Labs/Meds Orders: Active Orders 24 hr Category Date Time Status EKG 12 Lead [EKG Documentation Completion] [RC] STAT Care 09/26/17 18:55 Active Peripheral IV Care [RC] . DIRECTED Care 09/26/17 18:40 Active CULTURE BLOOD [BC] Stat Lab 09/26/17 20:29 Received CULTURE BLOOD [BC] Stat Lab 09/26/17 20:36 Received UA W/MICROSCOPIC [URIN] Stat Lab 09/26/17 21:45 Ordered Blood Culture x2 Reflex Set [OM.PC] Stat Oth 09/26/17 19:55 Ordered Peripheral IV Insertion Adult [OM.PC] Routine Oth 09/26/17 18:40 Ordered Labs: Laboratory Tests 09/26/17 09/26/17 09/26/17 Range/Units 18:45 18:45 18:45 WBC 11.24 H (3.98-10.04) K/mm3 RBC 3.85 L (3.98-5.22) M/mm3 Hgb 9.9 L (11.2-15.7) gm/L Hct 32.2 L (34.1-44.9) % MCV 83.6 (79.4-94.8) fl MCH 25.7 (25.6-32.2) pg MCHC 30.7 L (32.2-35.5) g/dl RDW Std Deviation 73.8 H (36.4-46.3) fL Plt Count 187 (182-369) K/mm3 MPV 9.5 (9.4-12.3) fl Neutrophils % (Manual) 84 H (40-60) % Band Neutrophils % 3 (0-10) % Lymphocytes % (Manual) 8 L (20-40) % Atypical Lymphs % 0 % Monocytes % (Manual) 3 (2-10) % Eosinophils % (Manual) 2 (0.7-5.8) % Basophils % (Manual) 0 L (0.1-1.2) Platelet Estimate Adequate Plt Morphology Comment Normal Polychromasia 1+ slight Poikilocytosis 1+ slight Anisocytosis 3+ marke Tear Drop Cells 1+ slight Helmet Cells 1+ slight RBC Morph Comment Abnormal PT (9.5-12.1) SECONDS INR APTT (24-31) SECONDS Sodium 130 L (136-145) mEq/L Potassium 4.1 (3.5-5.1) mEq/L Chloride 93 L (98-107) mEq/L Carbon Dioxide 23 (21-32) mEq/L Anion Gap 18.1 H (5-15) BUN 11 (7-18) mg/dL Creatinine 0.4 L (0.55-1.02) mg/dL Est Cr Clr Drug Dosing 156.74 mL/min Estimated GFR (MDRD) > 60 (>60) mL/min BUN/Creatinine Ratio 27.5 H (14-18) Glucose 84 (74-106) mg/dL Calcium 9.4 (8.5-10.1) mg/dL Total Bilirubin 8.6 H (0.2-1.0) mg/dL Direct Bilirubin 6.80 H (0.0-0.2) mg/dl GGT 862 H (5-55) U/L AST 791 H (15-37) U/L ALT 103 H (14-59) U/L Alkaline Phosphatase 1392 H (46-116) U/L C-Reactive Protein 26.6 H* (<1.0) mg/dL Total Protein 5.9 L (6.4-8.2) g/dl Albumin 2.3 L (3.4-5.0) g/dl Globulin 3.6 gm/dL Albumin/Globulin Ratio 0.6 L (1-2) Lipase 42 L (73-393) U/L Urine Color (Yellow) Urine Appearance (Clear) Urine pH (5.0-8.0) Ur Specific [place] (1.005-1.030) Urine Protein (Negative) Urine Glucose (UA) (Negative) Urine Ketones (Negative) Urine Occult Blood (Negative) Urine Nitrite (Negative) Urine Bilirubin (Negative) Urine Urobilinogen (0.2-1.0) Ur Leukocyte Esterase (Negative) Urine RBC (0-5) /hpf Urine WBC (0-5) /hpf Ur Epithelial Cells (0-5) /hpf Urine Bacteria (FEW) /hpf Urine Mucus (FEW) /hpf 09/26/17 09/26/17 Range/Units 18:45 21:45 WBC (3.98-10.04) K/mm3 RBC (3.98-5.22) M/mm3 Hgb (11.2-15.7) gm/L Hct (34.1-44.9) % MCV (79.4-94.8) fl MCH (25.6-32.2) pg MCHC (32.2-35.5) g/dl RDW Std Deviation (36.4-46.3) fL Plt Count (182-369) K/mm3 MPV (9.4-12.3) fl Neutrophils % (Manual) (40-60) % Band Neutrophils % (0-10) % Lymphocytes % (Manual) (20-40) % Atypical Lymphs % % Monocytes % (Manual) (2-10) % Eosinophils % (Manual) (0.7-5.8) % Basophils % (Manual) (0.1-1.2) Platelet Estimate Plt Morphology Comment Polychromasia Poikilocytosis Anisocytosis Tear Drop Cells Helmet Cells RBC Morph Comment PT 12.1 (9.5-12.1) SECONDS INR 1.11 APTT 32 H (24-31) SECONDS Sodium (136-145) mEq/L Potassium (3.5-5.1) mEq/L Chloride (98-107) mEq/L Carbon Dioxide (21-32) mEq/L Anion Gap (5-15) BUN (7-18) mg/dL Creatinine (0.55-1.02) mg/dL Est Cr Clr Drug Dosing mL/min Estimated GFR (MDRD) (>60) mL/min BUN/Creatinine Ratio (14-18) Glucose (74-106) mg/dL Calcium (8.5-10.1) mg/dL Total Bilirubin (0.2-1.0) mg/dL Direct Bilirubin (0.0-0.2) mg/dl GGT (5-55) U/L AST (15-37) U/L ALT (14-59) U/L Alkaline Phosphatase (46-116) U/L C-Reactive Protein (<1.0) mg/dL Total Protein (6.4-8.2) g/dl Albumin (3.4-5.0) g/dl Globulin gm/dL Albumin/Globulin Ratio (1-2) Lipase (73-393) U/L Urine Color [place] H (Yellow) Urine Appearance Clear (Clear) Urine pH 5.5 (5.0-8.0) Ur Specific [place] > or = 1.030 (1.005-1.030) Urine Protein 1+ H (Negative) Urine Glucose (UA) Negative (Negative) Urine Ketones 2+ H (Negative) Urine Occult Blood Negative (Negative) Urine Nitrite Negative (Negative) Urine Bilirubin 3+ H (Negative) Urine Urobilinogen 2.0 H (0.2-1.0) Ur Leukocyte Esterase Negative (Negative) Urine RBC 0-5 (0-5) /hpf Urine WBC 0-5 (0-5) /hpf Ur Epithelial Cells 0-5 (0-5) /hpf Urine Bacteria Few (FEW) /hpf Urine Mucus Many H (FEW) /hpf Meds: Medications Discontinued Medications Generic Name Dose Route Start Last Admin Trade Name Freq PRN Reason Stop Dose Admin Ceftriaxone Sodium 2 gm 09/26/17 20:38 Rocephin IVPUSH 09/26/17 20:39 ONETIME ONE Hydromorphone HCl 0.5 mg 09/26/17 18:40 09/26/17 19:14 Dilaudid IVPUSH 09/26/17 18:41 0.5 mg ONETIME ONE Administration Hydromorphone HCl 0.5 mg 09/26/17 18:54 09/26/17 19:14 Dilaudid IVPUSH 09/26/17 18:55 0.5 mg ONETIME ONE Administration Hydromorphone HCl 0.5 mg 09/26/17 21:58 09/26/17 22:02 Dilaudid IVPUSH 09/26/17 21:59 0.5 mg ONETIME ONE Administration Sodium Chloride 1,000 mls @ 100 mls/hr 09/26/17 20:00 09/26/17 20:03 Normal Saline IV 100 mls/hr ASDIRECTED EZEKIEL Administration Levofloxacin/Dextrose 750 mg/ 150 mls @ 100 mls/hr 09/26/17 20:39 09/26/17 20 :47 Premix IV 09/26/17 22:08 100 mls/hr ONETIME ONE Administration Metronidazole 500 mg/ Premix 100 mls @ 100 mls/hr 09/26/17 20:39 IV 09/26/17 21:38 ONETIME ONE Vancomycin HCl 1.7 gm/ Sodium 250 mls @ 250 mls/hr 09/26/17 20:39 09/26/17 22 :02 Chloride IV 09/26/17 21:38 250 mls/hr ONETIME ONE Administration Sodium Chloride 10 ml 09/26/17 18:40 09/26/17 19:16 Saline Flush FLUSH 10 ml ASDIRECTED PRN Administration Keep Vein Open - Re-Assessments/Exams Free Text/Narrative Re-Assessment/Exam: IV established with Dilaudid 1 mg IVP. Initial labs and studies include CBC, chem 14, CRP, EKG, and UA. I also ordered x-ray of the chest and abdomen series. EKG sinus tachycardia with no ST changes. Heart rate 116. Discussed with the patient options. She requests consult of the general surgeon here locally to see if a paracentesis is able to be completed here to relieve some discomfort on her abdomen. Also discussed that she possibly may have a blood clot to the lungs with elevated heart rate and also SPO2 of 92%. She is aware that she is at increased risk of blood clots due to the cancer. She states she would rather not have any sort of treatment if required. She is okay with undergoing CT of the chest and abdomen are required.I have ordered abdomen limited ultrasound since most of the pain is located to the RUQ. Reviewed CT of the abdomen and pelvis obtained June 20, 2017: Multiple ill- defined metastatic lesions within the liver. As mentioned above, these have not worsened from prior study and are either stable or slightly improved. 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 Mild increased stool is noted throughout the colon. Calcified gallstones within the gallbladder. Nothing acute is appreciated on CT study of the abdomen and pelvis. 09/26/17 19:30 Reassessment, patients pain has improved. HR has diminished to 114. She appears to be more relaxed. Labs reviewed: White blood cell count 11.24, hemoglobin is 9.9, platelet count 127, neutrophil percentage is 84 with no left shift. Sodium 1:30, potassium 4.1 , chloride 93, CO2 23, AG 18.1, creatinine 0.4, total bilirubin 8.6, AST 791, ALT 13, and alk phosphatase 1392. With reviewing previous labs June 2017 patient's alk phosphatase is 84. ALT was 28. AST 791. Lipase is pending. Ordered GGT and direct bilirubin. Chest x-ray revealed poor inspiratory effort secondary to increasing distention to her abdomen. Few air fluid levels to the abdomen with no concerns for obstruction at this time. Final interpretation is pending. Discussed patient with Dr. Nava merchandising consultant General Surgeon suggests patient be transferred to [place]. 09/26/17 20:34 Direct bilirubin 6.80, GGT a 62, and lipase 42. Discussed patient with Dr. Gurrola suggested ordering vancomycin, flagyl, and levaquin. Patient requests transport to [facility]. She will require MRI ERCP to rule out common bile duct obstruction with possible stenting.In addition paracentesis required. Antibiotics started in fear she may have SBP. 2[address] I have spoken with Dr. Cummings merchandising consultant Hospitalists. States labs obtained yesterday were similar as of today. Suggested CT of the abdomen be obtained here. I informed him our General Surgeon will not perform paracentesis here and recommended transferring to [place]. He has accepted the patient and suggested continuation of antibiotics ordered. Patient will be direct admit. No CT of the abdomen will be obtained here. Transfer paperwork completed.Ambulance has been notified for transfer. 2158 Ambulance crew present for transfer. Patient complaining of pain ordered dilaudid 0.5mg IVP. Departure - Departure Time of Disposition: 21:30 Disposition: DC/Tfer to Acute Hospital 02 Condition: Fair Clinical Impression: Ascites, malignant, Metastatic breast cancer Breast cancer metastasized to liver Qualifiers: Laterality: unspecified laterality Qualified Code(s): C50.919 - Malignant neoplasm of unspecified site of unspecified female breast - Discharge Information Referrals: Izzy Friend, [employer] [Primary Care Provider] - Forms: ED Department Discharge - My Orders Last 24 Hours: My Active Orders 09/26/17 18:40 Peripheral IV Care [RC] . DIRECTED Peripheral IV Insertion Adult [OM.PC] Routine 09/26/17 18:55 EKG 12 Lead [EKG Documentation Completion] [RC] STAT 09/26/17 19:55 Blood Culture x2 Reflex Set [OM.PC] Stat 09/26/17 20:29 CULTURE BLOOD [BC] Stat 09/26/17 20:36 CULTURE BLOOD [BC] Stat 09/26/17 21:45 UA W/MICROSCOPIC [URIN] Stat - Assessment/Plan Last 24 Hours: My Active Orders 09/26/17 18:40 Peripheral IV Care [RC] . DIRECTED Peripheral IV Insertion Adult [OM.PC] Routine 09/26/17 18:55 EKG 12 Lead [EKG Documentation Completion] [RC] STAT 09/26/17 19:55 Blood Culture x2 Reflex Set [OM.PC] Stat 09/26/17 20:29 CULTURE BLOOD [BC] Stat 09/26/17 20:36 CULTURE BLOOD [BC] Stat 09/26/17 21:45 UA W/MICROSCOPIC [URIN] Stat
[2017-09-26] MEDS ORDERED: Sodium Chloride 0.9% 1,000 ML IV SCH (20:00)
[2017-09-26] MEDS ORDERED: cefTRIAXone 2 GM Vial IVPUSH ONE (20:38)
[2017-09-26] MEDS ORDERED: Levofloxacin/Dextrose 5%-Water 750 MG in Premix Bag 1 BAG IV ONE (20:39)
[2017-09-26] MEDS ORDERED: metroNIDAZOLE/Normal Saline 500 MG in Premix Bag 1 BAG IV ONE (20:39)
[2017-09-26] MEDS ORDERED: Vancomycin 1.7 GM in Sodium Chloride 0.9% 250 ML IV ONE (20:39)
--- NOTE | 2017-09-26 21:19 | US ---
Limited abdominal ultrasound: Multiple real-time images of the upper right abdomen were obtained. Comparison: Prior CT abdomen and pelvis exam of 06/20/17. Findings: Innumerable hypoechoic lesions are seen within the liver involving both right and left lobes compatible with metastatic disease. Shadowing is identified within the gallbladder fossa compatible with contracted gallbladder around gallstones. Mild gallbladder wall thickening is seen. No biliary duct dilatation is noted. Mild amount of ascites is seen. Right kidney shows no hydronephrosis or mass and has a length of 11.8 cm. Pancreas is mostly obscured. Visualized portions appear within normal limits. Portal vein shows normal hepatopedal flow. Impression: 1. Contracted gallbladder around gallstones. Gallbladder wall is slightly thickened with no biliary duct dilatation being seen. 2. Innumerable metastatic lesions within the liver. 3. Mild amount of ascites. Diagnostic code #9
--- NOTE | 2017-09-27 08:06 | CR ---
Abdominal series: Supine and upright views of the abdomen were obtained as well as frontal view of the chest. Scattered areas of osteosclerosis are seen within the ribs, spine, pelvis and hips. Fullness within the abdomen likely representing mild ascites. Bowel gas pattern is normal. No free air is seen. No acute parenchymal densities are noted. Right sided infusion catheter is seen. Heart does not appear enlarged. Impression: 1. Diffuse osseous metastatic disease. 2. No acute parenchymal change is seen within either lung. 3. Probable ascites. Diagnostic code #9
== END 2017-09-26 22:07 ==
LOC: JD.ED 18:29
DX: C50.919 Malignant neoplasm of unspecified site of unspecified female breast (principal); C78.7 Secondary malignant neoplasm of liver and intrahepatic bile duct; R18.0 Malignant ascites; F17.210 Nicotine dependence, cigarettes, uncomplicated; Z88.8 Allergy status to other drugs, medicaments and biological substances; Z79.899 Other long term (current) drug therapy; Z90.710 Acquired absence of both cervix and uterus; Z98.890 Other specified postprocedural states
CPT/HCPCS: 36415; 74022; 76705; 80053; 81001; 82248; 82977; 83690; 85025; 85610; 85730; 86140; 87040; 93005; 96361; 96365; 96375; 96376; 99285; J1170; J1956; J3370; J7040; J7050